=== PATIENT | male | born 1955 | race Hispanic/Latino ===

== ENCOUNTER → 2024-11-06 | Outpatient (CLI) | payer OTHER ==
--- NOTE | 2024-11-06 15:44 | HMCSR ---
APPROVED REPORT EXAM: Two-dimensional and M-mode echocardiogram with Doppler and color Doppler. INDICATION ICD: Syncope and collapse R55 2D Dimensions RVDd3.5 cmLVEF(%)64.7 (>50%)LVED Vol(simp.)60.0 mL IVSd1.1 (0.7-1.1cm)FS(%)35 %LVES Vol(simp.)27.0 mL LVDd4.9 (3.8-5.6cm)LA (2D)4.6 (1.6-4.0cm)LVEF(%, simp.)55 % PWd1.6 (0.7-1.1cm)Ao Root(2D)3.1 (2.0-3.7cm)LA ESV INDEX (BP)27.58 mL/m2 IVSs1.5 cmLVOT diam2.0 (1.8-2.4cm) LVDs3.2 (2.5-4.0cm)IVC diam1.1 cm PWs2.0 cm M-Mode Dimensions EPSS0.5 cm LA (MM)4.0 (1.6-4.0cm) Ao Root(MM)3.2 (2.0-3.7cm) Aortic Valve AoV Vmax1.5 m/Brigid Peak GR8.5 mmHgLVOT Vmax1.0 m/s AoV VTI0.3 mAo Mean GR4.7 mmHgLVOT VTI0.21 m BOLA (VMAX)2.27 cm2AVA (VTI) 2.3 cm2 Mitral Valve MV E Vmax76.1 cm/sDECEL Efzs672 ms MV A Vmax92.4 cm/sP 1/2 T60 ms E/A ratio0.8MVA (PHT)3.7 cm2 TDI E/E' Ocjicn34.9E/E' Nxmjxgw26.5 Medial E' Peak V4.79 cm/sLateral E' Peak V7.25 cm/s Pulmonary Valve PV Vmax0.9 m/sPV VTI0.18 mPV Mean GR1.7 mmHg PV Peak GR3.0 mmHg Tricuspid Valve TR Vmax2.3 m/sRVSP20.4 mmHg TR Peak GR20.7 mmHg Left Ventricle The left ventricle is normal size. There is normal LV segmental wall motion. There is normal left kay tricular wall thickness. LVEF is 55-60%. Indeterminate diastolic dysfunction. Right Ventricle The right ventricle is normal size. The right ventricular systolic function is normal. Atria The left atrium size is normal. The right atrium size is normal. Aortic Valve The aortic valve is normal in structure. No aortic regurgitation is present. There is no aortic valvu lar stenosis. Mitral Valve The mitral valve is normal in structure. There is no mitral valve regurgitation noted. There is no mi tral valve stenosis. Tricuspid Valve The tricuspid valve is normal in structure. There is trace tricuspid valve regurgitation noted. Pulmonic Valve The pulmonary valve is normal in structure. There is no pulmonic valvular regurgitation. Great Vessels The aortic root is normal in size. The IVC is normal in size and collapses >50% with inspiration. Pericardium There is no pericardial effusion. Other Information Quality : Adequate Conclusion LVEF is 55-60%. There is normal LV segmental wall motion. The aortic root is normal in size. There is no pericardial effusion.
== END | disposition home or self-care (01) ==
LOC: RAH 13:23
PROVIDERS: ATTEND Internal Medicine
DX: R55 Syncope and collapse (principal)
CPT/HCPCS: 93306